=== PATIENT | female | born 1950 | race Caucasian/White ===

== ENCOUNTER 2017-02-28 11:43 | Emergency (ER) | payer MEDICARE, OTHER ==
--- NOTE | 2017-03-07 17:48 | ER ---
ADMIT: 02/28/2017 RM/LOC: ER [facility] MR#: [id number] [address] [id number] CARLOS MORALES [address] [place] [address] Emergency Room Report SEX: F AGE: 66 : 1950 DATE: 02/28/2017 ADDENDUM: 66-year-old white female coming in with dizziness, she says on and off for 2 months. Worse the last 7 days. She feels lightheaded. Nothing seems to make it better or worse. She was supposed to see Dr. Lynch on , but felt it was worse today. She has COPD just by history, because she has had a longstanding history of smoking but she is not short of breath or hypoxic. CBC, chemistry, chest x-ray otherwise negative. We are discharging her home. She needs to follow up Dr. Lynch as scheduled, probably see if they can get in a little sooner than the . CONDITION DISCHARGE: Good. Vincent Khalil MD/ florina JOB #: [id number] CC: Vincent Khalil MD, Attending Physician Emil Lynch MD, Family Physician
== END 2017-02-28 13:40 | disposition home or self-care (01) ==
LOC: ER 11:43
DX: R42 Dizziness and giddiness (principal); F17.210 Nicotine dependence, cigarettes, uncomplicated; Z98.890 Other specified postprocedural states

== ENCOUNTER → 2017-03-19 | Outpatient (CLI) | payer MEDICARE, OTHER | END | disposition home or self-care (01) | LOC: CARD 11:14 | DX: R55 Syncope and collapse (principal); I47.1 Supraventricular tachycardia ==

== ENCOUNTER → 2017-03-31 | Outpatient (CLI) | payer MEDICARE, OTHER | END | disposition home or self-care (01) | LOC: RAD.S 15:45 | DX: R40.4 Transient alteration of awareness (principal); J32.3 Chronic sphenoidal sinusitis ==